=== PATIENT | female | born 1960 | race Caucasian/White ===

== ENCOUNTER 2018-12-07 09:31 | Day surgery (SDC) | payer OTHER, SELFPAY ==
--- NOTE | 2018-12-07 | PATH_ITS ---
[facility] Accession Number: [id number] . 01 Material submitted: . PART A: colon - TRANSVERSE COLON POLYP (NEAR HEPATIC FLEXURE) PART B: colon - COLON POLYP AT 85 CM X3 PART C: colon - COLON POLYP AT 45 CM X2 PART D: rectum - RECTAL POLYP . 02 Diagnosis: A. Transverse Colon, Polyp Near Hepatic Flexure, Biopsy: Tubular adenoma. . B. Colon, Polyp at 85 cm x3, Biopsies: Fragments of tubular adenoma and sessile serrated adenoma. . C. Colon, Polyp at 45 cm x2, Biopsies: Hyperplastic polyps. . D. Rectum, Polyp, Biopsy: Hyperplastic polyp. [facility]/12/11/2018 . 02 Electronically signed: . Yanni Epps MD, Pathologist NPI- [id number] . 01 Gross description: . Part A: TRANSVERSE COLON POLYP (NEAR HEPATIC FLEXURE): Received in formalin is 1 fragment(s) of fry, soft tissue measuring 0.4 x 0.3 x 0.3 cm submitted entirely in 1 cassette(s) Part B: COLON POLYP AT 85 CM X3: Received in formalin are multiple fragment(s) of fry, soft tissue measuring 2.0 x 0.9 x 0.5 cm in aggregate submitted entirely in 1 cassette(s) Part C: COLON POLYP AT 45 CM X2: Received in formalin are 2 fragment(s) of fry, soft tissue measuring 0.6 x 0.4 x 0.4 cm to 0.4 x 0.3 x 0.3 cm submitted entirely in 1 cassette(s) Part D: RECTAL POLYP: Received in formalin are 2 fragment(s) of fry, soft tissue measuring 0.5 x 0.5 x 0.5 cm to 0.5 x 0.5 x 0.4 cm submitted entirely in 1 cassette(s) /CKI /CKI . 02 Pathologist provided ICD-10: D12.3, D12.6 . 02 CPT . 476640, 486765, 792123, 412572 Performed at: 01 [facility] [address] [id number] MD Jairon Beckham MD Phone: [phone] Performed at: 02 [facility] [address] [place] [id number] MD Yanni Epps MD Phone: [phone]
[2018-12-07 10:13] VITALS: BP 145/90; PULSE 84; RESP 16; TEMP 36.4; O2SAT 96; BMI 40.1
[2018-12-07] MEDS: SODIUM CHLORIDE 0.9% 1,000 ML 200 ML IV (10:21)
--- NOTE | 2018-12-07 11:17 | PM.OP.ENDO ---
Operative Date/Time/Diagnoses Date of procedure: 12/07/18 Time of procedure: 12:18 Pre-op diagnosis: This patient has a history of her mother dying of colon cancer at age 62. It is been 5 years since her last colonoscopy. Post-op diagnosis: same (Multiple polyps(7). Diverticulosis sigmoid colon.) Procedure & Clinicians Study performed: Colonoscopy with cold biopsy and hot snare polypectomy Same procedure as scheduled: Yes Indications: Screening. Family History of colon cancer. Last exam 5 years ago. Surgeon: Corbin Perez Procedure Notes SCOAP/Timeout: Performed Procedure in detail: The patient was placed in the left lateral decubitus position and underwent IV sedation directed by the surgeon consisting of fentanyl and Versed. Digital exam was unremarkable. The scope was inserted and advanced through the rectum into the sigmoid, descending, transverse, and ascending colon. To reach this point and is cecum further on a stiffener had to be inserted, pressure had to be applied, and the patient had to be repositioned. A polyp was noted at the transverse colon it was biopsied and completely removed on the way in.. The cecum was reached identified by the ileocecal valve and the appendiceal opening. The scope was gradually brought out. Larger additional polyps were noted chronic egress. Polyps were found at 85 cm(3 polyps about 1cm in size), 2 slightly smaller polyps located between 35 and 45 cm from the anal verge, and a smaller rectal polyp. With the exception of the polyp removed on the way in, all of the others were removed with a hot snare polypectomy technique. The scope ultimately was retroflexed in the rectum. The appearance was normal. The scope was removed and the patient tolerated the procedure well. Prep was very good Sedation minutes: 51 Findings: diverticulosis (Sigmoid colon) and polyp (Seven polyps removed) Specimen(s): none sent Complications: none Recommendations: Colonscopy in 3 years (Due to the large size of her polyps and her family history and the relatively large number of polyps) Follow up: as needed Disposition: PACU
--- NOTE | 2018-12-07 11:18 | PM.HP.1 ---
History of Present Illness Date Patient Seen: 12/07/18 Time Patient Seen: 11:18 Chief complaint: [id number] Narrative: Patient is a woman here for screening colonoscopy. Last exam was 5 years ago. A parent had colon cancer. Patient History Medical History HTN (hypertension) (Chronic) Surgical History History of endometrial ablation (Resolved) History of surgical removal of pilonidal cyst (Resolved) Social History marital status: household members: spouse occupational status: employed Smoking Status: Never smoker alcohol intake: current substance use type: does not use Family & Social History Family History (Updated 12/07/18 @ 11:21 by Corbin Perez MD) Mother Cancer Social History: household members spouse Tobacco & Substance use: Smoking Status Never smoker alcohol intake current Meds Home Medications Medication Instructions Recorded Confirmed Type lisinopril 20 mg tablet 20 mg PO DAILY 10/16/18 12/07/18 History Allergies Allergy/AdvReac Type Severity Reaction Status Date / Time No Known Drug Allergies Allergy Verified 12/07/18 10:07 Review of Systems Review of Systems All systems reviewed & are unremarkable except as noted in HPI and below Exam Vital Signs (past 8 hours): - 12/07/18 10:13 Temperature 97.6 F Pulse Rate 84 Respiratory Rate 16 Blood Pressure 145/90 H Pulse Oximetry 96 Oxygen Delivery Method Room Air Narrative Exam Narrative: Pleasant cooperative patient no apparent distress. Lungs are clear to auscultation. No rales or rhonchi. Heart regular rate and rhythm no murmur gallop. Abdomen is soft nontender without mass. No obvious hernias. Patient is alert and oriented x3. Assessment & Plan Assessment & Plan narrative: The patient for a screening colonoscopy. I have discussed the procedure with them. Risks of bleeding, perforation which would necessitate major operation, failure to find remove all lesions, the potential tattoo were all discussed. All questions were answered. They wished to proceed.
--- NOTE | 2018-12-07 11:20 | PM.PREOP ---
Pre-operative Note Interval Note History & Physical reviewed/Exam performed by Physician: Yes Changes to H&P: No ASA Class (for procedural sedation): II
[2018-12-07] MEDS: fentaNYL 250 MCG/5 ML INJ IV ×2 (11:34→11:39)
[2018-12-07] MEDS: MIDAZOLAM 5 MG/5 ML VIAL IV ×2 (11:35→11:56)
[2018-12-07 12:20] VITALS: BP 143/89; PULSE 77; RESP 12; TEMP 36.4; O2SAT 97
[2018-12-07 12:25] VITALS: BP 143/84; PULSE 75; RESP 12; O2SAT 96
[2018-12-07 12:29] VITALS: BP 122/80; PULSE 76; RESP 12; O2SAT 95
[2018-12-07 12:35] VITALS: BP 134/76; PULSE 91; RESP 16; O2SAT 99
[2018-12-07 12:40] VITALS: BP 144/86; PULSE 78; RESP 16; TEMP 36.6; O2SAT 96
== END 2018-12-07 12:55 | disposition home or self-care (01) ==
PROVIDERS: PCP Family Medicine; Visit Provider Specialist
PROC: 0DJD8ZZ Inspection of Lower Intestinal Tract, Via Natural or Artificial Opening Endoscopic (ICD-10-PCS; CPT 45378; principal; 2018-12-07 10:45)
DX: Z12.11 Encounter for screening for malignant neoplasm of colon (principal); D12.3 Benign neoplasm of transverse colon; D12.6 Benign neoplasm of colon, unspecified; K62.1 Rectal polyp; K57.30 Diverticulosis of large intestine without perforation or abscess without bleeding; I10 Essential (primary) hypertension; Z80.0 Family history of malignant neoplasm of digestive organs
CPT/HCPCS: 45385; 45380; 88305; J2250; J3010

== ENCOUNTER 2021-06-21 21:13 | Emergency (ER) | payer OTHER, SELFPAY ==
[2021-06-21] VITALS (17 sets, daily range): BP systolic 121–169; BP diastolic 57–75; PULSE 74–90; RESP 9–20; TEMP 36.3; O2SAT 90–100; BMI 41.5
--- NOTE | 2021-06-21 21:19 | DI.RAD.S_ITS ---
PROCEDURE: XR ELBOW LT MIN 3V INDICATIONS: obvious deformity of elbow, fall, pain and swelling TECHNIQUE: 3 views of the elbow were acquired. COMPARISON: None. FINDINGS: Bones: Comminuted, markedly displaced and angulated proximal ulnar fracture. Radial head dislocation. Soft tissues: No elbow joint effusion. No suspicious soft tissue calcifications. IMPRESSION: Fracture dislocation of the proximal radius and ulna as above. Dictated by: Valarie Gilliland M.D. on 06/21/2021 at 21:44 Approved by: Valarie Gilliland M.D. on 06/21/2021 at 21:47
--- NOTE | 2021-06-21 21:31 | ED.UPPEXIN ---
HPI - Extremity Injury (Upper) General Chief Complaint: Extremity Injury, Upper Stated Complaint: Fall, left arm deformity Time Seen by Provider: 06/21/21 21:20 Source: patient and EMS Mode of arrival: EMS History of Present Illness HPI narrative: 61-year-old female nonsmoker with history of hypertension presents by EMS for evaluation of a left upper extremity elbow injury suffered just prior to arrival. She had been in her normal state of health, denies any prodromal symptoms and states she was getting up from a chair when her foot became entangled she fell forward onto an outstretched left arm. She now has pain, swelling and deformity to her left elbow. She denies numbness, tingling or weakness. She has significant pain with any range of motion and was splinted in a backing splint by EMS. She denies any head, neck or back pain. She has had no chest pain or shortness of breath. Related Data Home Medications Medication Instructions Recorded Confirmed lisinopril 20 mg tablet 20 mg PO DAILY 10/16/18 12/07/18 Allergies Allergy/AdvReac Type Severity Reaction Status Date / Time No Known Drug Allergies Allergy Verified 06/21/21 21:21 Review of Systems Review of Systems Narrative: GENERAL: Denies chills, fatigue, malaise, fever, sweats. HEENT: Denies sinus pain, ear pain, sore throat, difficulty swallowing, dizziness. RESPIRATORY: Denies dyspnea, cough, wheezing, hemoptysis, sputum. CARDIOVASCULAR: Denies chest pain, palpitations, orthopnea, edema, GASTROINTESTINAL: Denies nausea, vomiting, abdominal pain, diarrhea, constipation, melena. : Denies dysuria, frequency, incontinence, hematuria, urinary retention. MUSCULOSKELETAL: See HPI SKIN: Denies rash, skin lesions, or other NEUROLOGIC: Denies weakness, headache, numbness, change in speech, confusion, seizures, incoordination. PSYCHIATRIC: No concerning psychosocial issues. 12 point review of systems is negative except for those stated above Patient History Medical History (Updated 06/21/21 @ 23:28 by Manan Love DO) HTN (hypertension) Surgical History History of endometrial ablation History of surgical removal of pilonidal cyst Family History Mother Cancer Social History marital status: household members: spouse occupational status: employed Smoking Status: Never smoker alcohol intake: current substance use type: does not use Smoking Status: Never smoker Substance Use Type: does not use Exam Narrative Exam Narrative: GENERAL: [61] year old patient appears stated age. Well-developed patient, in mild distress. HEAD: Atraumatic. Normocephalic. EYES: Pupils equal round and reactive. Extraocular motions intact. No scleral icterus. No injection or drainage. ENT: Nose without bleeding, purulent drainage. Throat without erythema, tonsillar hypertrophy or exudate. Airway patent. NECK: Trachea midline. Non tender CARDIOVASCULAR: Regular rate and rhythm without murmurs, gallops, or rubs. RESPIRATORY: Clear to auscultation. Breath sounds equal bilaterally. No wheezes, rales, or rhonchi. GASTROINTESTINAL: Abdomen soft, non-tender, nondistended. EXTREMITIES: Pain, deformity, and large effusion to left elbow with swelling, compartment soft, no pain on palpation or with range of motion at left wrist. There is no break in the skin, but tenting noted overlying fracture component. Cap refill and sensation intact, no pain or tenderness to left shoulder or humerus. BACK: Nontender without deformity or crepitance. No flank tenderness. NEURO: AOx3. SKIN: No rash or erythema of visible areas Initial Vital Signs Initial Vital Signs: Vital Signs Temperature 97.3 F L 06/21/21 21:13 Pulse Rate 74 06/21/21 21:13 Respiratory Rate 20 06/21/21 21:13 Blood Pressure 121/63 06/21/21 21:13 Pulse Oximetry 100 06/21/21 21:13 Procedures Orthopedic Joint Reduction Joint #1: Time Out Performed: Yes Side: left Joint Reduction Location: elbow Analgesia: procedural sedation Technique used: traction/counter-traction and direct manipulation (gentle palpation of radial head with traction, no movement felt. ) Post-reduction neuro exam: intact Post-reduction vascular: intact Post Reduction X-Ray Obtained: No Splint Applied: Yes Orthopedic Splinting/Casting Injury #1: Side: left Upper Extremity Injury Location: shoulder Post splinting neuro exam: intact Post splinting vascular exam: intact Placed by: Nursing Additional Comments: significant padding over lateral elbow placed along with sling. Procedural Sedation Consent signed: Yes Time out performed: Yes Indication: fracture/dislocation reduction ASA Class: II Mallampati Airway Classification: Class II Preparation: bus monitor applied, pulse oximeter, capnometry used, supplemental O2 applied, suction/airway equipment at bedside and IV secured IV Propofol dose (mg): 70 Intraservice time/total sedation time (min): 12 ED Sedation Level: Moderate (Concious) Complications: none Course Orders Ordered: ED Orders 06/21/21 21:19 XR elbow LT min 3V Stat 06/21/21 21:21 COVID19 -Nasal swab/Pre-Proc Stat Discontinued Medications Hydromorphone HCl (Hydromorphone 1 Mg Inj) 1 mg IV NOW ONE Stop: 06/21/21 21:52 Last Admin: 06/21/21 21:57 Dose: 1 mg Documented by: AGUSTIN Ondansetron HCl (Ondansetron 4 Mg/2 Ml Inj) 4 mg IV NOW ONE Stop: 06/21/21 21:52 Last Admin: 06/21/21 21:57 Dose: 4 mg Documented by: AGUSTIN Propofol (Propofol 200 Mg/20 Ml Vial) 130 mg 1 mg/kg (130 mg) IV NOW ONE Stop: 06/21/21 23:05 Last Admin: 06/21/21 23:17 Dose: 70 mg Documented by: AGUSTIN Consultations Consultation #1: Discussed with on-call orthopedist (Carloz), after discussing the patient's history and physical exam, he has reviewed x-ray and recommends splinting for comfort and transport this evening to [facility] due to the complexity of her injury. Consultation #2: Discussed with Dr. Cain ([facility] she is happy to accept and recommends transfer, requests attempt at her reduction of radial head dislocation if possible prior to transport Vital Signs Vital signs: Vital Signs - 8 hr 06/21/21 21:13 06/21/21 22:38 06/21/21 22:39 Temperature 97.3 F L Pulse Rate 74 84 83 Respiratory Rate 20 13 Blood Pressure 121/63 164/75 H Pulse Oximetry 100 97 100 06/21/21 22:40 06/21/21 22:45 06/21/21 22:50 Temperature Pulse Rate 78 83 88 Respiratory Rate 10 L 11 L 13 Blood Pressure 169/72 H 162/73 H 166/62 H Pulse Oximetry 99 98 97 06/21/21 22:55 06/21/21 23:00 06/21/21 23:05 Temperature Pulse Rate 87 89 90 Respiratory Rate 14 13 12 Blood Pressure 168/74 H Pulse Oximetry 96 96 96 06/21/21 23:10 06/21/21 23:15 06/21/21 23:20 Temperature Pulse Rate 90 88 79 Respiratory Rate 14 11 L 16 Blood Pressure 153/57 H 148/65 H 148/67 H Pulse Oximetry 97 99 98 06/21/21 23:25 06/21/21 23:30 06/21/21 23:35 Temperature Pulse Rate 89 86 88 Respiratory Rate 19 12 14 Blood Pressure 144/68 H 147/68 H 143/67 H Pulse Oximetry 97 97 90 L 06/21/21 23:40 06/21/21 23:45 Temperature Pulse Rate 78 86 Respiratory Rate 9 L 11 L Blood Pressure 141/65 H 148/65 H Pulse Oximetry 97 95 MDM - Extremity Injury (Upper) Lab Data Labs: Lab Results 06/21/21 Range/Units 21:21 SARS-CoV-2 (PCR) Negative (Negative) Imaging Data Extremity x-ray #1: Radiologist's Impression: [place] [address] XRay Report Signed Patient: Yaneli Reed MR#: [id number] : 1960 Acct:[id number] Age/Sex: 61 / F Date of Service: 06/21/21 Loc: ED Accession Number: [id number] ?? Procedure: XR elbow LT min 3V Ordering Provider: Manan Love D.O. PROCEDURE:? XR ELBOW LT MIN 3V ? INDICATIONS:? obvious deformity of elbow, fall, pain and swelling ? TECHNIQUE:? 3 views of the elbow were acquired.? ? COMPARISON:? None. ? FINDINGS:? ? Bones:? Comminuted, markedly displaced and angulated proximal ulnar fracture.? Radial head dislocation. ? Soft tissues:? No elbow joint effusion.? No suspicious soft tissue calcifications.? ? ? IMPRESSION:? Fracture dislocation of the proximal radius and ulna as above. ? ? Dictated by: Valarie Gilliland M.D. on 06/21/2021 at 21:44 ? ? Approved by: Valarie Gilliland M.D. on 06/21/2021 at 21:47 ? MDM Narrative Medical decision making narrative: Patient with ground level fall on outstretched arm resulting in complex fracture dislocation of left elbow without evidence of neurovascular compromise. After local orthopedic consultation is determine the nature of this injury exceeds the capability of this facility. Orthopedic trauma at [facility] is happy to accept. I was consenting patient for procedural sedation and dislocation reduction when our 1 and only respiratory therapist was called from the department to the OR for an emergent case. Due to lack of appropriate staffing procedural sedation unavailable at this time. 2320 - Respiratory has returned. Please see above for procedure notes Discharge Plan Departure Patient Disposition: [facility] Clinical Impression: Elbow fracture, left, Dislocation of radial head Prescriptions: No Action lisinopril 20 mg tablet 20 mg PO DAILY 0RF Referrals: Ashly Pool DO [Primary Care Provider] -
[2021-06-21] MEDS: HYDROMORPHONE 1 MG INJ IV (21:57)
[2021-06-21] MEDS: ONDANSETRON 4 MG/2 ML INJ IV (21:57)
[2021-06-21 22:13] LABS: COVID19 -Nasal RAPID Negative (Negative)
[2021-06-21] MEDS: propofoL 200 MG/20 ML VIAL 130 MG IV (23:17)
== END 2021-06-22 00:12 | disposition short-term general hospital (02) ==
PROVIDERS: Emergency Provider Emergency Medicine; PCP Family Medicine
DX: S52.102A Unspecified fracture of upper end of left radius, initial encounter for closed fracture (principal); S52.002A Unspecified fracture of upper end of left ulna, initial encounter for closed fracture; S53.005A Unspecified dislocation of left radial head, initial encounter; W18.30XA Fall on same level, unspecified, initial encounter; Y93.89 Activity, other specified; Z20.822 Contact with and (suspected) exposure to COVID-19
CPT/HCPCS: 24600; 73080; 87635; 96374; 96375; 99152; 99284; 99285; 99291; C9803; J1170; J2405; J2704

== ENCOUNTER 2022-07-13 09:36 | Day surgery (SDC) | payer OTHER, SELFPAY ==
--- NOTE | 2022-07-13 | PATH_ITS ---
[facility] Accession Number: [id number] No. of containers..01 Tissue . 01 Material submitted: . colon - TRANSVERSE . 01 Diagnosis: Transverse Colon, Biopsy: Tubular adenoma. MRV 07/16/2022 1426 Local . 01 Electronically signed: . Yanni Epps MD, Pathologist NPI- [id number] . 01 Gross description: . TRANSVERSE: Received in formalin are 3 fragment(s) of fry, soft tissue measuring 0.2 x 0.2 x 0.1 cm to 0.1 x 0.1 x 0.1 cm submitted entirely in 1 cassette(s) /CPE 07/14/2022 0636 Local . 01 Pathologist provided ICD-10: D12.3 . 01 CPT . 780167 Specimen Comment: A courtesy copy of this report has been sent to [phone] Performed at: 01 [facility] [address] [place] [address], [place], [place] [id number] MD Jairon Beckham MD Phone: [phone]
[2022-07-13 10:41] VITALS: BP 163/92; PULSE 86; RESP 16; TEMP 36.8; O2SAT 96; BMI 40.8
[2022-07-13] MEDS: LACTATED RINGERS 1,000 ML 200 ML IV (10:48)
--- NOTE | 2022-07-13 11:55 | P.HP_ITS ---
History of Present Illness History of Present Illness Date Patient Seen: 07/13/22 Time Patient Seen: 11:55 Chief complaint: [facility] Narrative: The patient presents for colorectal screening. She is a personal history of colonic polyps, last colonoscopy was 4 years ago. Family history of colon cancer in her mother. On further history denies any recent gastrointestinal symptoms. No nausea, vomiting, abdominal pain, loss of appetite, unexplained weight loss, change in bowel habits, or blood per rectum. Patient History Medical History (Updated 07/13/22 @ 11:56 by Gonzales Graves MD) HTN (hypertension) Surgical History History of endometrial ablation History of surgical removal of pilonidal cyst Family & Social History Family History Mother Cancer Social History: household members spouse Tobacco & Substance use: Smoking Status Former smoker alcohol intake current alcohol intake frequency holiday/special occasion Substance Use Type does not use Meds Home Medications and Allergies Home Medications Medication Instructions Recorded Confirmed Type lisinopril 20 mg tablet 20 mg PO DAILY 10/16/18 07/13/22 History metformin 500 mg tablet 500 mg PO BID 07/13/22 07/13/22 History Allergies Allergy/AdvReac Type Severity Reaction Status Date / Time No Known Drug Allergies Allergy Verified 07/13/22 10:34 Exam Vital Signs (past 8 hours): - 07/13/22 10:41 Temperature 98.2 F Pulse Rate 86 Respiratory Rate 16 Blood Pressure 163/92 H Pulse Oximetry 96 Oxygen Delivery Method Room Air Oxygen Delivery Method Room Air Narrative Exam Narrative: General adult woman alert oriented no acute distress Abdomen soft nontender nondistended Assessment & Plan Assessment and plan (1) Personal history of colonic polyps: Status: Acute Assessment & Plan narrative: The patient requires colorectal screening and colonoscopy is recommended. Technical details were discussed. Risks, benefits, alternatives explained. Risks including but not limited to myocardial infarction, aspiration, bleeding, pain, missed lesion, incomplete examination, need for further radiographic studies, colonic perforation, and need for major abdominal surgery were discussed. All questions were answered to their satisfaction, and they are in agreement with this plan. Time Spent With Patient Critical Care time: I spent a total of [] minutes of critical care time on this patient's care today; this time is exclusive of procedural time.
--- NOTE | 2022-07-13 12:04 | PM.OP.COLON ---
Operative Date/Time/Diagnoses Date of procedure: 07/13/22 Time of procedure: 12:05 Pre-op diagnosis: Personal history of colonic polyps Family history of colon cancer Post-op diagnosis: same Procedure & Clinicians Study performed: Colonoscopy Same procedure as scheduled: Yes Indications: Personal history of colonic polyps and a family history of colon cancer here for screening colonoscopy Surgeon: Gonzales Graves Procedure Notes Procedure in detail: The history and physical was performed/updated and the patient is ASA class is 2. The procedure was discussed in detail with the patient. Potential risks complications including infection, bleeding, missed diagnosis, perforation, need for surgery, and were explained. Their questions were answered and informed consent was obtained. Patient was brought to the procedure room and placed standard monitoring equipment. The patient's vital signs were monitored continuously throughout the entire procedure. Prior to starting time-out was performed. The patient was placed in the left lateral recumbent position. Procedural sedation was administered by anesthesia. Examination began with a thorough inspection of the perianal area there was no evidence of fissures, fistulae, external hemorrhoids or cutaneous malignancy. The colonoscopy scope was then placed into the anal canal and was advanced to the cecum, which was identified by the ileocecal valve, the appendiceal orifice and the confluence of the taenia. The scope was then slowly withdrawn examining colon thoroughly in all directions, irrigating it of any residual stool. Within the transverse colon there was a 5 mm polyp which was removed with biopsy forceps. The remainder of the colon was normal in its appearance. The patient tolerated the procedure well. They will be discharged once criteria are met. The prep was of good/excellent quality. The withdrawl time was 6 minutes. Specimen(s): other (Transverse colon polyp) Impression: Colonic polyp x1 Post-procedure Plan for aftercare: Follow-up is dependent on pathology findings Disposition: same day surgery
[2022-07-13 12:34] VITALS: BP 183/105; PULSE 81; RESP 20; TEMP 37.1; O2SAT 100
[2022-07-13 12:45] VITALS: BP 158/89; PULSE 82; RESP 14; TEMP 36.1; O2SAT 99
[2022-07-13 12:50] VITALS: BP 150/89; PULSE 80; RESP 16; O2SAT 98
--- NOTE | 2022-07-13 13:04 | SUR.PHASEII ---
Patient discharged by Kem Blair
== END 2022-07-13 13:10 | disposition home or self-care (01) ==
PROVIDERS: PCP Family Medicine; Referring Provider Surgery; Visit Provider Surgery
PROC: 0DJD8ZZ Inspection of Lower Intestinal Tract, Via Natural or Artificial Opening Endoscopic (ICD-10-PCS; CPT 45378; principal; 2022-07-13 11:30)
DX: Z12.11 Encounter for screening for malignant neoplasm of colon (principal); Z86.010 Personal history of colon polyps; Z80.0 Family history of malignant neoplasm of digestive organs; D12.3 Benign neoplasm of transverse colon
CPT/HCPCS: 45380; J2704